=== PATIENT | male | born 1940 | race Caucasian/White ===

== ENCOUNTER 2021-03-26 14:19 | Emergency (ER) | payer MEDICARE, OTHER ==
[~2021-03-26 14:19] MED LIST: AMARYL4 MG PO; ASPIRIN EC81 MG PO; CO Q10100 MG PO; COLACE100 MG PO; CRESTOR40 MG PO; GLUCOPHAGE1000 MG PO; GLUCOSAMINE1000 MG PO; MYLICON80 MG PO; NEURONTIN100 MG PO; NORCO 5-325 TA1 EACH PO; NOVOLIN 70100 UNIT/M SC; PLAVIX75 MG PO; PROTONIX 40MG T40 MG PO; SYNTHROID75 MCG PO; VITAMIN B122500 MCG PO; VITAMIN D2000 UNIT PO; ZESTRIL5 MG PO
== END 2021-03-26 18:40 | disposition home or self-care (01) ==
LOC: FER 14:19
DX: L76.22 Postprocedural hemorrhage of skin and subcutaneous tissue following other procedure (principal); I10 Essential (primary) hypertension; Z98.890 Other specified postprocedural states; Y83.6 Removal of other organ (partial) (total) as the cause of abnormal reaction of the patient, or of later complication, without mention of misadventure at the time of the procedure
CPT/HCPCS: 99282